=== PATIENT | male | born 1960 | race Caucasian/White ===

== ENCOUNTER 2020-09-29 08:43 | Outpatient (REF) | payer OTHER, SELFPAY ==
--- NOTE | ~2020-09-29 | XR_ITS ---
EXAMINATION: XR KNEE, RIGHT CLINICAL INFORMATION: Right knee pain. COMPARISON: Radiographs right knee 08/14/2016. TECHNIQUE: Four views of the right knee. FINDINGS: There are osteoarthritic changes again seen involving the lateral patellofemoral joint with joint narrowing and lateral patellar spurring. There is mild lateralization patella and some articular cartilage chondrocalcinosis. No visible erosive change. Bony mineralization is normal. There is borderline narrowing medial knee joint compartment and small marginal osteophyte lateral femoral condyle. No mediolateral compartment erosive change or chondrocalcinosis. There is borderline fluid suprapatellar bursa. No significant effusion. Hoffa's fat pad appears normal. XR/XR knee RT 4V IMPRESSION: 1. Osteoarthritis lateral knee joint compartment with mild lateralization patella and some fine articular cartilage chondrocalcinosis. No erosive change. 2. Borderline narrowing medial compartment. 3. Trace suprapatellar fluid.
== END 2020-09-29 08:44 | disposition home or self-care (01) ==
LOC: HO.XRAY 08:43
PROVIDERS: PCP Family Medicine; Visit Provider Family Medicine
DX: M25.561 Pain in right knee (principal)
CPT/HCPCS: 73564

== ENCOUNTER 2021-03-20 17:00 | Outpatient (RCR) | payer OTHER, SELFPAY | END 2021-03-27 16:20 | disposition home or self-care (01) | LOC: HO.PT 17:00 | PROVIDERS: PCP Family Medicine; Visit Provider Family Medicine | DX: M25.561 Pain in right knee (principal) | CPT/HCPCS: 97110; 97140; 97162; 97530 ==

== ENCOUNTER 2022-01-08 08:50 | Outpatient (REF) | payer OTHER, SELFPAY ==
--- NOTE | ~2022-01-08 | MR_ITS ---
EXAMINATION: MR BRAIN WITHOUT CONTRAST CLINICAL INFORMATION: Cognitive dysfunction. Severe hearing loss. COMPARISON: None. TECHNIQUE: Multiplanar, multisequence imaging of the brain was performed without contrast. Slightly limited study with motion artifacts. FINDINGS: No diffusion abnormalities are identified to suggest an acute infarct. The ventricles are normal in size. No mass effect or midline shift is seen. There is gatp-bd-kmsqtfpz generalized parenchymal volume loss. No white matter signal changes evident. No disproportionate volume loss evident. No extra-axial fluid collections are seen. The brainstem and cerebellum are normal. The gradient refocused acquisition is normal. The craniovertebral junction, marrow signal, and midline structures are normal. The major intracranial flow voids at the level of the [place] of Fan are preserved. The dural venous sinus flow voids are maintained. The mastoid air cells are well aerated. There is mild maxillary and ethmoid sinus mucosal thickening. MR/MR head/brain wo con IMPRESSION: No acute process. Vequ-pb-abjcnxkc generalized parenchymal volume loss.
== END 2022-01-08 08:51 | disposition home or self-care (01) ==
LOC: HO.MRI 08:50
PROVIDERS: Visit Provider Nurse Practitioner
DX: R41.89 Other symptoms and signs involving cognitive functions and awareness (principal)
CPT/HCPCS: 70551

== ENCOUNTER 2022-10-30 10:23 | Outpatient (REF) | payer OTHER, SELFPAY ==
[2022-10-30 11:29] LABS: MANUAL DIFF FLAG NO
[2022-10-30 11:38] LABS: Basophils Percent Auto 1.1 % (0-2); Eosinophils Absolute Auto 0.2 X10*3/uL (0.0-0.4); Eosinophils Percent Auto 4.5 % (0-4); Hematocrit 51.9 % (42.0-52.0); Hemoglobin 16.4 g/dl (14.0-18.0); Imm Gran Abs Auto 0.02 X10*3/uL (0.00-0.03); Imm Gran Pct Auto 0.6 % (0.0-0.4); Lymphocytes Absolute Auto 1.1 X10*3/uL (1.2-4.9); Lymphocytes Percent Auto 31.8 % (20-40); Mean Corpuscular HGB Conc 31.6 g/dl (31.0-36.0); Mean Corpuscular Hemoglobin 28.2 pg (27.0-33.0); Mean Corpuscular Volume 89.3 fL (80.0-98.0); Mean Platelet Volume 10.4 fL (9.4-12.4); Monocytes Absolute Auto 0.5 X10*3/uL (0.1-1.2); Monocytes Percent Auto 13.2 % (2-11); Neutrophils Absolute Auto 1.7 x10*3/uL (2.0-8.3); Neutrophils Percent Auto 48.8 % (45-73); Platelet Count 190 X10*3/uL (160-400); Red Blood Count 5.81 X10*6/uL (4.60-5.80); Red Cell Distribution Width 13.6 % (11.0-16.0); White Blood Count 3.6 X10*3/uL (4.8-10.8)
[2022-10-30 12:46] LABS: Alanine Aminotransferase 70 U/L (0-40); Albumin Level 4.1 g/dL (3.5-5.0); Alkaline Phosphatase 65 U/L (39-117); Anion Gap 10 (12-20); Aspartate Amino Transferase 33 U/L (5-37); Bilirubin Total 0.5 mg/dL (0.0-1.0); Blood Urea Nitrogen 13 mg/dL (9-16); Calcium 9.1 mg/dL (8.4-10.2); Carbon Dioxide 30 mmol/L (22-29); Chloride 107 mmol/L (96-108); Estimated Glomerular Filt Rate > 60; Glucose Random 86 mg/dL (60-115); Potassium 4.4 mmol/L (3.3-5.1); Sodium 143 mmol/L (135-145); Total Protein 6.6 g/dL (6.5-8.0)
[2022-10-30 13:10] LABS: TSH reflex Free T4 2.84 uIU/mL (0.32-4.0); Vitamin D 25-OH Total 40.4 ng/mL (>30)
[2022-10-30 13:16] LABS: Folate 6.5 ng/mL (> or = 4.0); Vitamin B12 429 pg/mL (200-900)
[2022-11-05 10:22] LABS: Testosterone, Total 570 ng/dL (250-1100)
== END 2022-10-30 10:24 | disposition home or self-care (01) ==
LOC: HO.HHCL 10:23
PROVIDERS: Visit Provider Registered Nurse
DX: R53.83 Other fatigue (principal); E78.00 Pure hypercholesterolemia, unspecified; E29.1 Testicular hypofunction; E66.01 Morbid (severe) obesity due to excess calories
CPT/HCPCS: 36415; 80053; 82306; 82607; 82746; 84403; 84443; 85025

== ENCOUNTER 2023-03-02 08:16 | Outpatient (REF) | payer OTHER, SELFPAY ==
--- NOTE | ~2023-03-02 | XR_ITS ---
EXAMINATION: XR KNEE, RIGHT CLINICAL INFORMATION: Male with acute on chronic right knee pain and instability. COMPARISON: September 29, 2020 TECHNIQUE: Four views of the right knee. FINDINGS: Advanced degenerative changes in the patellofemoral joint with hypertrophic change, joint space narrowing and subchondral sclerosis. Trace joint effusion. Mild degenerative changes in the medial and lateral compartments. XR/XR knee RT 4V IMPRESSION: Advanced degenerative changes in the patellofemoral joint.
[2023-03-02 09:19] LABS: Alanine Aminotransferase 44 U/L (0-40); Alkaline Phosphatase 65 U/L (39-117); Aspartate Amino Transferase 28 U/L (5-37); Bilirubin Direct 0.2 mg/dL (0.0-0.5); Bilirubin Total 0.6 mg/dL (0.0-1.0); Total Protein 6.5 g/dL (6.5-8.0)
[2023-03-02 09:41] LABS: HBS Num1 0.61 mIU/mL (0-7.99); HBc Num1 0.08 S/CO (0.00-0.79); HBsAGNum1 0.32 S/CO (0.00-0.99); Hepatitis A Antibody IgM 0.15 Index (0-0.79); Hepatitis B Core Antibody Nonreactive (Nonreactive); Hepatitis B Surface Antigen Negative (Negative); ~HepC Num1 0.17 S/CO (0.00-0.79); ~Hepatitis A Antibody IgM Nonreactive (Nonreactive); ~Hepatitis B Surface Antibody NONREACTIVE (Nonreactive); ~Hepatitis C Antibody Nonreactive (Nonreactive)
== END 2023-03-02 08:17 | disposition home or self-care (01) ==
LOC: HO.LAB 08:16
PROVIDERS: PCP Registered Nurse; Visit Provider Registered Nurse
DX: M25.561 Pain in right knee (principal); G89.29 Other chronic pain; R74.8 Abnormal levels of other serum enzymes
CPT/HCPCS: 36415; 73564; 80076; 86704; 86706; 86709; 86803; 87340

== ENCOUNTER 2023-05-06 15:20 | Outpatient (AMB) | payer OTHER, SELFPAY ==
--- NOTE | 2023-05-06 15:41 | A.OFFVIS_ITS ---
Intake Vital Signs 05/06/23 15:56 Height 5 ft 7 in Weight 259 lb BMI 40.6 BP 120/72 Pulse 62 Pulse Source Pulse Oximeter Pulse Oximetry (%) 98 Oxygen Delivery Method Room Air Intake Visit Reasons: [id number]-Oghxwqvmj Intake Note: Patient presents for MARK. getting up x3 a night and doesn't use bathroom, his body just thinks it needs too. During the night he gasp for air and snores. Sleepy through the day Allergies penicillin V Allergy (Unknown, Verified 05/06/23 15:52) rash Penicillins [PENICILLINS] Allergy (Unknown, Verified 05/06/23 15:52) RED RASH HPI HPI Comments History of Present Illness Details 63 y/o male patient presents for new in- person visit to manage sleep apnea. He was diagnose with MARK two years ago, and tried CPAP. He had issue with CPAP and non compliant at that time. Finally he found good mask for him, but he needs to return his CPAP due to noncompliant. Pt continues to experiences snoring, gasping arousals, non refreshing sleep with daytime sleepiness. Sleep questionnaire: Have you ever been diagnosed with a sleep disorder? Yes, severe degree of sleep apnea. Have you ever had a sleep study in the past? Yes. Have you ever been treated for a sleep disorder? Yes, CPAP. Do you take medications for a sleep disorder? ramelteon and trazodone. Do you snore? Yes. Do you wake up gasping at night? Yes. Do you have episodes of apneas? Yes. If yes, are they witnessed? Yes. Do you have episodes of nocturnal chest pain or dyspnea? Yes. Do you have difficulty initiating sleep? Yes. Do you have difficulty maintaining sleep? Yes. Do you wake up tired? Yes. Do you have headaches upon awakening? No. Do you wake up with dry mouth or throat? Yes. Do you have GERD? No. Do you have nocturia? Yes. Do you have nocturnal leg cramps? Yes. Do you have symptoms of restless legs? No. Do you act out your dreams? No. Sleep hygiene questionnaire: What is your usual sleep routine? Usual bedtime is at 11 pm; Usual wake up time is at 9-10 am . Do you take naps? Yes. Is your sleep environment cool, dark, and quiet? Yes. Do you exercise? No. Do you take caffeine or other stimulants? Yes, in the morning and at noon. Do you use electronics in bed? Yes, watching TV. What is your work schedule? No. Review of Systems Const All systems reviewed & are unremarkable except as noted in HPI and below Physical Exam Vital Signs: Last Vital Signs Pulse 62 05/06/23 15:56 BP 120/72 05/06/23 15:56 Pulse Ox 98 05/06/23 15:56 Oxygen Delivery Method Room Air 05/06/23 15:56 BMI result Body Mass Index 40.6 Const General: cooperative and tired appearing Nutritional Appearance: obese Orientation/consciousness: patient oriented x3 Limitations: language barrier Resp Effort & Inspection: normal respiratory effort and able to speak in complete sentences Neuro General: patient oriented x3 and moves all extremities Cranial nerves: Yes CN's II-XII intact bilaterally Cognition (Neuro): normal cognition Gait exam (Neuro): Assisted gait required Motor exam (neuro): 5/5 motor strength present throughout Psych Appearance: grossly normal Mental Status: mental status grossly normal Speech and movement: Normal speech and movement present Affect: normal affect Attitude: cooperative Assessment & Plan Assessment & Plan (1) Sleep apnea: Comment: Hx of severe degree of sleep apnea. Code(s): G47.30 - Sleep apnea, unspecified (2) Daytime sleepiness: Code(s): R40.0 - Somnolence (3) Obesity, Class III, BMI 40-49.9 (morbid obesity): Code(s): E66.01 - Morbid (severe) obesity due to excess calories Plan Pt is advised to undergo in lab sleep study to assess for sleep apnea. Will f/u with pt after study to discuss results and appropriate treatment options. Wt reduction advised. Pt to call with any worsening concerns or questions. Orders: Orders RT PSG in-lab sleep study 05/06/23 E66.01 - Morbid (severe) obesity due to excess calories, G47.30 - Sleep apnea, unspecified, R40.0 - Somnolence Coding Level of Care Code New Pt Level 3 (97379) Diagnoses Sleep apnea G47.30 Daytime sleepiness R40.0 Obesity, Class III, BMI 40-49.9 (morbid obesity) E66.01
[2023-05-06 15:56] VITALS: BP 120/72; PULSE 62; O2SAT 98; BMI 40.6
== END 2023-05-06 16:17 | disposition home or self-care (01) ==
PROVIDERS: PCP Registered Nurse; Visit Provider Nurse Practitioner Family
DX: G47.30 Sleep apnea, unspecified (principal); R40.0 Somnolence; E66.01 Morbid (severe) obesity due to excess calories
CPT/HCPCS: 99203

== ENCOUNTER → 2023-05-06 15:20 | Outpatient (BNVA) | payer OTHER, SELFPAY | PROVIDERS: PCP Registered Nurse; Visit Provider Nurse Practitioner Family | DX: G47.30 Sleep apnea, unspecified (principal); R40.0 Somnolence; E66.01 Morbid (severe) obesity due to excess calories; Z68.41 Body mass index [BMI] 40.0-44.9, adult | CPT/HCPCS: 99202 ==

== ENCOUNTER → 2023-06-02 19:30 | Outpatient (REF) | payer OTHER, SELFPAY | LOC: HO.SL 19:30 | PROVIDERS: PCP Registered Nurse; Visit Provider Nurse Practitioner Family | DX: G47.33 Obstructive sleep apnea (adult) (pediatric) (principal); R40.0 Somnolence | CPT/HCPCS: 95810 ==

== ENCOUNTER → 2023-06-02 23:56 | Outpatient (BNV) | payer OTHER, SELFPAY | PROVIDERS: PCP Registered Nurse; Visit Provider Psychiatry & Neurology Neurology | DX: G47.33 Obstructive sleep apnea (adult) (pediatric) (principal) | CPT/HCPCS: 95811 ==

== ENCOUNTER 2023-09-02 09:59 | Outpatient (REF) | payer OTHER, SELFPAY ==
[2023-09-02 12:11] LABS: Alanine Aminotransferase 16 U/L (0-40); Albumin Level 4.1 g/dL (3.5-5.0); Alkaline Phosphatase 66 U/L (39-117); Anion Gap 9 (12-20); Aspartate Amino Transferase 14 U/L (5-37); Bilirubin Total 0.6 mg/dL (0.0-1.0); Blood Urea Nitrogen 8 mg/dL (9-16); Calcium 9.3 mg/dL (8.4-10.2); Carbon Dioxide 31 mmol/L (22-29); Chloride 107 mmol/L (96-108); Cholesterol 222 mg/dL (<200); Estimated Glomerular Filt Rate > 60; Glucose Random 91 mg/dL (60-115); HDL Cholesterol 44 mg/dL (>40); LDL Cholesterol Calculated 154 mg/dL (<100); Potassium 4.5 mmol/L (3.3-5.1); Sodium 142 mmol/L (135-145); Total Protein 6.7 g/dL (6.5-8.0); Triglycerides 123 mg/dL (<150)
== END 2023-09-02 10:00 | disposition home or self-care (01) ==
LOC: HO.HHCL 09:59
PROVIDERS: Visit Provider Registered Nurse
DX: E78.00 Pure hypercholesterolemia, unspecified (principal)
CPT/HCPCS: 36415; 80053; 80061

== ENCOUNTER 2023-09-04 10:29 | Outpatient (AMB) | payer OTHER, SELFPAY ==
[2023-09-04 10:42] VITALS: BP 118/80; BMI 41.3
--- NOTE | 2023-09-04 10:42 | A.OFFVIS_ITS ---
Vital Signs 09/04/23 10:42 Height 5 ft 7 in Weight 264 lb BMI 41.3 BP 118/80 Blood Pressure Location Rt brachial Position Sitting Intake Visit Reasons: 4 month F/U - LvM Intake Note: Patient presents for 4 month follow up. patient has issues with the air coming from mask. Senior Marketing Data Analyst Required: Yes Senior Marketing Data Analyst Name: patient refused signed refusal Allergies penicillin V Allergy (Unknown, Verified 09/04/23 10:47) rash Penicillins [PENICILLINS] Allergy (Unknown, Verified 09/04/23 10:47) RED RASH Medication List - Last Reconciled 09/04/23 by VAL Caban albuterol sulfate 90 mcg/actuation (Ventolin HFA) inhalation atorvastatin 80 mg PO DAILY bupropion HCl XL 150 mg PO DAILY cholecalciferol (vitamin D3) (Vitamin D3) 50 mcg PO DAILY naproxen 375 mg PO BID ramelteon 8 mg PO DAILY trazodone 100 mg PO BEDTIME HPI Comments Details: 63-yr-old male presents for follow-up visit of sleep apnea. Pt is accompanied by his dtr, who pt requested assist w/ estonian interpretation. Pt denies any significant interval medical history changes. Since the last visit- pt underwent in-lab Split titration study which showed severe MARK w/ AHI 53/hr and O2 karthikeyan 88%, split night PAP titration componenent of study showed best treatment response from CPAP 11 cmH2O w/ redidual AHI 0/hr and O2 karthikeyan 91%. Pt has since received a new CPAP machine. He sttes he is using the machine nightly > 4 hrs. He feels the pressure is just a bit too high, so he cannot fully sleep well when using it. He endorses some episodes of SOB on exertion. May use his albuterol inhaler at times prn SOB which helps. Denies wheezing, chest pain, palpitations, swelling. PFSH Family History (Updated 09/04/23 @ 10:49 by MARINE Cam) Sister Sleep apnea Diabetes Social History (Updated 09/04/23 @ 10:49 by MARINE Cam) Alcohol intake: never Patient Tobacco Use Status: Former Tobacco user Years Smoked: quit 2003 Review of Systems Const All systems reviewed & are unremarkable except as noted in HPI and below Physical Exam Vital Signs: Last Vital Signs BP 118/80 09/04/23 10:42 BMI result Body Mass Index 41.3 Const General: no acute distress Orientation/consciousness: patient oriented x3 HEENT Other: Mallampati stage Resp Effort & Inspection: normal respiratory effort and able to speak in complete sentences Auscultation: clear to auscultation bilaterally Cardio Rate: regular rate Rhythm: regular rhythm Neuro General: patient oriented x3 Psych Mental Status: mental status grossly normal Speech and movement: Clear speech present Attitude: cooperative Results Reviewed Results Reviewed: PAP compliance report- see HPI Assessment & Plan Assessment & Plan (1) Severe obstructive sleep apnea: Code(s): G47.33 - Obstructive sleep apnea (adult) (pediatric) Category: Medical (2) Daytime sleepiness: Code(s): R40.0 - Somnolence Category: Medical (3) Anxiety: Code(s): F41.9 - Anxiety disorder, unspecified Category: Medical (4) Mild intermittent asthma: Code(s): J45.20 - Mild intermittent asthma, uncomplicated Category: Medical Plan Will request updated PAP compliance report and to be connected to pt's [employer] account. Once connected, will change CPAPsettings from 11 to 8 cmH2O (w/ EPR set to 3) nightly > 4 hours- to improve pt's tolerance to use. Advised to f/u w/ PCP if pt is using his Albuterol more tahn 2-3 x's weekly Clean CPAP machine and supplies routinely. Change CPAP supplies routinely. Pt to contact us or respiratory company with any questions or concerns. Follow-up in 6 months or sooner prn. Coding Level of Care Code Est Pt Level 3 (38580) Diagnoses Severe obstructive sleep apnea G47.33 Daytime sleepiness R40.0 Anxiety F41.9 Mild intermittent asthma J45.20
== END 2023-09-04 11:39 | disposition home or self-care (01) ==
PROVIDERS: PCP Registered Nurse; Visit Provider Nurse Practitioner Family
DX: G47.33 Obstructive sleep apnea (adult) (pediatric) (principal); R40.0 Somnolence; F41.9 Anxiety disorder, unspecified; J45.20 Mild intermittent asthma, uncomplicated
CPT/HCPCS: 99213

== ENCOUNTER → 2023-09-04 10:29 | Outpatient (BNVA) | payer OTHER, SELFPAY | PROVIDERS: PCP Registered Nurse; Visit Provider Nurse Practitioner Family | DX: J45.20 Mild intermittent asthma, uncomplicated (principal); G47.33 Obstructive sleep apnea (adult) (pediatric); R40.0 Somnolence; F41.9 Anxiety disorder, unspecified | CPT/HCPCS: 99212 ==

== ENCOUNTER 2024-04-14 08:54 | Outpatient (AMB) | payer OTHER, SELFPAY ==
--- NOTE | 2024-04-14 09:01 | A.OFFVIS_ITS ---
Intake Visit Reasons: New Pt - right knee pain Intake Note: Jose Alberto is a 64 year old male who presents today with his daughter as a new patient for a evaluation of his right knee pain. No hx of injury. Patient reports ongoing pain for about 5 years. Patient states that his pain is on the center of his knee cap. He mentions that his pain is worse when standing for less than 30 minutes and going up the stairs. Patient has tried topical cream with mild relief. Pipe Roller Required: Yes Pipe Roller Services: Pipe Roller Offered & Declined Pipe Roller Name: Daughter Accompanied by: Daughter Allergies penicillin V Allergy (Unknown, Verified 04/14/24 09:06) rash Penicillins [PENICILLINS] Allergy (Unknown, Verified 04/14/24 09:06) RED RASH HPI HPI New Pt - right knee pain: Details: Mr. Ramiro Fitzpatrick is a 64-year-old male who presents the office today for evaluation of right knee pain. He denies any injury or trauma to the right knee but reports pain has been present for the past 5 years. He has not tried any cortisone injections. He understands that he has arthritis in the right knee. He uses a cane to assist with ambulation. [facility] Family History (Updated 09/04/23 @ 10:49 by MARINE Cam) Sister Sleep apnea Diabetes Social History (Updated 04/14/24 @ 09:07 by Aria Jasso) Alcohol intake: never Patient Tobacco Use Status: Former Tobacco user Years Smoked: quit 2003 Current occupational status: retired Review of Systems Const All systems reviewed & are unremarkable except as noted in HPI and below Physical Exam Const General: cooperative, healthy appearing and no acute distress Resp Effort & Inspection: normal respiratory effort and able to speak in complete sentences Cardio Rate: regular rate Peripheral pulses: Peripheral pulses 2+ throughout Skin Lesions: no lesions Rashes: no rashes Extrem Other: Right knee normal to inspection. No ecchymosis erythema or joint effusion. Crepitus felt with range of motion. Full range of motion. NVI. Office Procedures AMB Joint Injection/Aspiration Joint Injection/Aspiration Primary Site: right knee Injected: 80 mg of, DepoMedrol and with 8 mL of (2% plain lidocaine) Approach Used: anterolateral Procedure: The patient tolerated the procedure well, but had some pain with the injection and there was some relief with the local anesthesia Coding - Large joint Procedure code (CPT) selection complete Assessment & Plan Assessment & Plan (1) Osteoarthritis of right knee: Code(s): M17.11 - Unilateral primary osteoarthritis, right knee Category: Medical Plan Mr. Ramiro Fitzpatrick is a 64-year-old male who presents the office today for evaluation of right knee pain. He denies any injury or trauma to the right knee but reports pain has been present for the past 5 years. He has not tried any cortisone injections. He understands that he has arthritis in the right knee. He uses a cane to assist with ambulation. The patient was offered a cortisone injection in the right knee with 80 mg of DepoMedrol. The patient was explained the risks, benefits, and alternatives to receiving this injection. After receiving consent for the injection, the patient had the procedure done while in the office today. The patient tolerated the procedure well with no complications. X-rays obtained in the office today as well as digital views from 12/01/2023 reviewed in the office today by me, Milagros Denny PA-C, and reveal osteoarthritis of the right knee. Follow-up will be p.r.n., or sooner if needed Orders: Orders XR knee standing BI Today M25.569 - Pain in unspecified knee Coding Level of Care Code New Pt Level 3 (39043) Diagnoses Osteoarthritis of right knee M17.11 CPT Codes Coding - Large joint: 18696 - Large joint ([id number])
== END 2024-04-14 09:36 | disposition home or self-care (01) ==
PROVIDERS: PCP Registered Nurse; Visit Provider Physician Assistant
DX: M17.11 Unilateral primary osteoarthritis, right knee (principal)
CPT/HCPCS: 20610; 99203

== ENCOUNTER 2024-04-14 14:21 | Outpatient (REF) | payer OTHER, SELFPAY ==
--- NOTE | ~2024-04-14 | XR_ITS ---
CLINICAL HISTORY: M25.569 - Pain in unspecified knee Exam: Single AP view of the bilateral knees. Comparison: None. Findings: Standing AP view of the bilateral knees was performed. Left knee: Patella is slightly laterally positioned. Bony alignment is otherwise anatomic. Medial and lateral compartments are well maintained. No obvious fracture. Right knee: Lateral positioning of the patella is more pronounced than of the contralateral knee. Bony alignment is otherwise anatomic. Mild narrowing of the medial compartment with osteophyte formation of the lateral compartment. Impression: Findings suggest bilateral patellofemoral stress syndrome, [id number]-ltyuwce-tumd-left. Clinical correlation advised. This document has been electronically signed by: Wiliam Truong MD on 04/15/2024 06:13:04
== END 2024-04-14 14:22 | disposition home or self-care (01) ==
LOC: HO.HOSX 14:21
PROVIDERS: Visit Provider Physician Assistant
DX: M17.11 Unilateral primary osteoarthritis, right knee (principal)
CPT/HCPCS: 20610; 73565; 99202; J1010; J2003

== ENCOUNTER 2024-06-05 10:32 | Outpatient (REF) | payer OTHER, SELFPAY ==
[2024-06-05 11:46] LABS: Estimated Average Glucose 105 mg/dL; Hemoglobin A1C 130.9777 umol/L; Hemoglobin A1c % 5.3 % (<6.0); Total Hemoglobin (HGBA1C) 3840.3406 umol/L
[2024-06-05 12:13] LABS: Prostate Specific Antigen 0.96 ng/mL (<0.05-4.0)
[2024-06-05 12:26] LABS: Alanine Aminotransferase 17 U/L (0-40); Albumin Level 4.1 g/dL (3.5-5.0); Anion Gap 10 (12-20); Aspartate Amino Transferase 17 U/L (5-37); Bilirubin Total 0.7 mg/dL (0.0-1.0); Blood Urea Nitrogen 10 mg/dL (9-16); Calcium 8.9 mg/dL (8.4-10.2); Carbon Dioxide 29 mmol/L (22-29); Chloride 108 mmol/L (96-108); Cholesterol 223 mg/dL (<200); Estimated Glomerular Filt Rate > 60; Glucose Random 90 mg/dL (60-115); HDL Cholesterol 43 mg/dL (>40); LDL Cholesterol Calculated 154 mg/dL (<100); Potassium 4.4 mmol/L (3.3-5.1); Sodium 143 mmol/L (135-145); Total Protein 7.2 g/dL (6.5-8.0); Triglycerides 134 mg/dL (<150)
[2024-06-05 12:45] LABS: Alkaline Phosphatase 85 U/L (39-117)
== END 2024-06-05 10:33 | disposition home or self-care (01) ==
LOC: HO.HHCL 10:32
PROVIDERS: Visit Provider Registered Nurse
DX: Z12.5 Encounter for screening for malignant neoplasm of prostate (principal); R73.9 Hyperglycemia, unspecified; G47.33 Obstructive sleep apnea (adult) (pediatric); E78.00 Pure hypercholesterolemia, unspecified
CPT/HCPCS: 36415; 80053; 80061; 83036; 84153

== ENCOUNTER 2024-10-16 12:56 | Outpatient (REF) | payer OTHER, SELFPAY ==
--- NOTE | ~2024-10-16 | XR_ITS ---
EXAMINATION: XR KNEE, LEFT CLINICAL INFORMATION: M25.569 - Pain in unspecified knee COMPARISON: April 14, 2024. TECHNIQUE: AP view in standing position both knees. Lateral view of the left knee. FINDINGS: Joint space narrowing involving medial lateral compartment with sclerosis along the articular surface of the tibial plateau. No acute cortical disruption or malalignment, left knee. No suprapatellar bursa joint effusion. Vascular calcifications. No lytic or blastic lesions. XR/XR knee LT 2V IMPRESSION: Mild tricompartmental osteoarthrosis, left knee. Electronically signed by: Rudy Olson MD 10/16/2024 01:21 PM EDT
--- NOTE | ~2024-10-16 | XR_ITS ---
EXAMINATION: XR KNEE, RIGHT CLINICAL INFORMATION: M25.569 - Pain in unspecified knee COMPARISON: April 14, 2024. TECHNIQUE: Single lateral view of the right knee. FINDINGS: Limited examination demonstrated the joint space narrowing involving medial lateral compartment and patellofemoral joint with sclerosis along the articular surface. No gross malalignment. No suprapatellar bursa joint effusion. Vascular calcifications. No lytic or blastic lesions. XR/XR knee RT 2V IMPRESSION: Tricompartmental osteoporosis. Limited exam. Electronically signed by: Rudy Olson MD 10/16/2024 01:20 PM EDT
--- NOTE | ~2024-10-16 | XR_ITS ---
EXAMINATION: XR KNEE, RIGHT CLINICAL INFORMATION: M25.569 - Pain in unspecified knee COMPARISON: October 16, 2024. TECHNIQUE: Single sunrise view of the right knee. FINDINGS: Sclerosis along the articular surface and subchondral cyst formation with asymmetric joint space narrowing involving mostly the lateral segment of the patellofemoral joint XR/XR knee RT 1V IMPRESSION: Moderate osteoarthrosis. Limited exam. Electronically signed by: Rudy Olson MD 10/16/2024 01:51 PM EDT
--- NOTE | ~2024-10-16 | XR_ITS ---
EXAMINATION: XR KNEE, LEFT CLINICAL INFORMATION: M25.569 - Pain in unspecified knee COMPARISON: October 16, 2024. TECHNIQUE: Single sunrise view of the left knee. FINDINGS: No acute cortical disruption. Asymmetric joint space narrowing. No gross lytic or blastic lesions. XR/XR knee LT 1V IMPRESSION: Limited exam demonstrates mild osteoarthrosis. Electronically signed by: Rudy Olson MD 10/16/2024 01:50 PM EDT
--- OUTSIDE RECORDS SUMMARY | 2024-10-16 13:03 | XMS_ITS | Encounter Summary ---
Author Organization [employer] Address [address] [place] [address] Care Team Providers Care Hemodialysis Rn Name Role Phone [place], [facility] Primary Care Provider [phone] Encounter Details Date Type Department Care Team ([facility] st Contact Info) Description 08/06/2022 Orders Only [facility] MEDICINE [address] [place], [place] [phone] EllieSteph [facility] [address] [place] [address] Obstructive sleep apnea syndrome (Primary Dx) Social History Tobacco Use Types Packs/Day Years Used Date Smoking Tobacco: Former Cigarettes Smokeless Tobacco: Never Alcohol Use Standard Drinks/Week Comments Never 0 (1 standard drink = 0.6 oz pur e alcohol) Sex and Gender Information Value Date Recorded Sex Assigned at Male 01/22/2022 10:29 AM EDT Legal Sex Male 10:29 AM EDT Gender Identity Male 01/22/2022 10:29 AM EDT Sexual Orientation Bisexual 01/22/2022 10 :29 AM EDT documented as of this encounter Plan of Treatment Not on file documented as of this encounter Visit Diagnoses Diagnosis Obstructive sleep apnea syndrome- Primary Obstructive sleep apnea (adult) (pediatric) documented in this encounter Additional Health Concerns Assessment Noted Time PHQ-9 Depression Total Score: 8 03/27/19 23 10:20 AM EST documented as of this encounter Care Teams Hemodialysis Rn Relationship Specialty Start Date End Date Steph Argueta FNP [address] [place] [id number] PCP - General Family Medicine 11/15/21 documented as of this encounter
== END 2024-10-16 12:57 | disposition home or self-care (01) ==
LOC: HO.HOSX 12:56
PROVIDERS: Visit Provider Physician Assistant
DX: M17.0 Bilateral primary osteoarthritis of knee (principal); M25.561 Pain in right knee; M25.562 Pain in left knee
CPT/HCPCS: 20610; 73560; 99212; J1010; J2003

== ENCOUNTER 2024-10-16 12:56 | Outpatient (AMB) | payer OTHER, SELFPAY ==
--- NOTE | 2024-10-16 13:24 | MHC.OFFVIS ---
Vital Signs 10/16/24 13:26 Height 5 ft 7 in Weight 265 lb BMI 41.5 Intake Visit Reasons: New Prob - B/L knee pain Intake Note: Jose Alberto is a 64 year old male who presents today for a evaluation of his bilateral knee pain, last injection was on 04/14/24 in his right knee. Patient reports ongoing pain for about 3 years. He states knees are equally painful, however overtime pain, pain goes from one knee to the other. Denies and previous injury. Has attended physical therapy, with no improvement. Has used topical creams, braces, and medications, with no relief. Impression: Findings suggest bilateral patellofemoral stress syndrome, smxgw-rpwtluf-hzxm-left. Clinical correlation advised. Allergies penicillin V Allergy (Unknown, Verified 10/16/24 13:31) rash Penicillins (PENICILLINS) Allergy (Unknown, Verified 10/16/24 13:31) RED RASH HPI HPI New Prob - B/L knee pain: Details: Mr. Ramiro Fitzpatrick is a 64-year-old male who presents to the office today for bilateral knee pain due to osteoarthritis. He last received a cortisone injection in the right knee in March of this year. He would like cortisone injections in bilateral knees. [facility] Family History (Updated 09/04/23 @ 10:49 by MARINE Cam) Sister Sleep apnea Diabetes Social History (Updated 04/14/24 @ 09:07 by Aria Jasso) Alcohol intake: never Patient Tobacco Use Status: Former Tobacco user Years Smoked: quit 2003 Current occupational status: retired Review of Systems Const All systems reviewed & are unremarkable except as noted in HPI and below Physical Exam Vital Signs: BMI result Body Mass Index 41.5 Const General: cooperative, healthy appearing and no acute distress Resp Effort & Inspection: normal respiratory effort and able to speak in complete sentences Extrem Other: Bilateral knees normal to inspection. No ecchymosis erythema or joint effusion. Crepitus felt with range of motion. Full range of motion. NVI. Office Procedures AMB Joint Injection/Aspiration Joint Injection/Aspiration Primary Site: right knee Secondary Site: left knee Prep: site was prepped using aseptic technique, ethochloride spray was applied and injection warnings given Injected: 80 mg of, DepoMedrol and with 8 mL of (2% plain lidocaine) Approach Used: anterolateral Procedure: The patient tolerated the procedure well, but had some pain with the injection and there was some relief with the local anesthesia Coding 35617 - Bilateral Large Joint Procedure code (CPT) selection complete Assessment & Plan Assessment & Plan (1) Osteoarthritis of knees, bilateral: Code(s): M17.0 - Bilateral primary osteoarthritis of knee Category: Medical Plan The patient was offered cortisone injections in bilateral knees with 80 mg of DepoMedrol. The patient was explained the risks, benefits, and alternatives to receiving this injection. After receiving consent for the injection, the patient had the procedure done while in the office today. The patient tolerated the procedure well with no complications. Follow-up will be PRN, or sooner if needed X-rays of bilateral knees which were obtained while in the office today and were reviewed by me, Milagros Denny PA-C, revealed osteoarthritis. Orders: Orders XR knee RT 2V Today M25.569 - Pain in unspecified knee XR knee LT 2V Today M25.569 - Pain in unspecified knee XR knee RT 1V Today M25.569 - Pain in unspecified knee XR knee LT 1V Today M25.569 - Pain in unspecified knee Coding Level of Care Code Est Pt Level 3 (64771) Diagnoses Osteoarthritis of knees, bilateral M17.0 CPT Codes Coding - 02856 - Bilateral Large Joint: 63773 - Bilateral Large Joint ([id number])
[2024-10-16 13:26] VITALS: BMI 41.5
== END 2024-10-16 14:08 | disposition home or self-care (01) ==
LOC: HO.HOS 12:57
PROVIDERS: Visit Provider Physician Assistant
DX: M17.0 Bilateral primary osteoarthritis of knee (principal)
CPT/HCPCS: 20610; 99213

== ENCOUNTER → 2024-10-16 13:02 | Outpatient (BNV) | payer OTHER, SELFPAY | PROVIDERS: Visit Provider Radiology Diagnostic Radiology | DX: M17.0 Bilateral primary osteoarthritis of knee (principal) | CPT/HCPCS: 73560 ==

== ENCOUNTER 2024-10-20 10:54 | Outpatient (REF) | payer OTHER, SELFPAY ==
--- OUTSIDE RECORDS SUMMARY | 2024-10-21 11:57 | XMS_ITS | Encounter Summary ---
Author Organization [employer] Address [address] [place] [address] Care Team Providers Care Caser In Name Role Phone [place], [facility] Primary Care Provider [phone] Encounter Details Date Type Department Care Team ([facility] st Contact Info) Description 08/06/2022 Orders Only [facility] MEDICINE [address] [place], [place] [phone] EllieSteph [facility] [address] [place] [address] Obstructive sleep apnea syndrome (Primary Dx) Social [...] documented as of this encounter Care Teams Caser In Relationship Specialty Start Date End Date Steph Argueta FNP [address] [place] [id number] PCP - General Family Medicine 11/15/21 documented as of this encounter
== END 2024-10-20 10:55 | disposition home or self-care (01) ==
LOC: HO.HOSX 10:54
PROVIDERS: Visit Provider Physician Assistant
DX: Z13.89 Encounter for screening for other disorder (principal)

== ENCOUNTER 2025-01-26 08:13 | Outpatient (AMB) | payer OTHER, SELFPAY ==
--- NOTE | 2025-01-26 08:20 | MHC.OFFVIS ---
Intake Visit Reasons: Inj-B/L knee injection-last 10/16/24 Intake Note: Jose Alberto is a 64 year old male who presents today for a repeat injection for his bilateral knees, last injection was on 10/16/24. Patient reports his last injections gave him relief and would like to repeat. Allergies penicillin V Allergy (Unknown, Verified 01/26/25 08:32) rash Penicillins (PENICILLINS) Allergy (Unknown, Verified 01/26/25 08:32) RED RASH HPI HPI Inj-B/L knee injection-last 10/16/24: Details: MR. Ramiro Fitzpatrick is a 64-year-old male who presents to the office today for chronic bilateral knee pain. He received a cortisone injection on 10/16/2024 which gave him good relief. He is looking to repeat injection while in the office today. [facility] Family History (Updated 09/04/23 @ 10:49 by MARINE Cam) Sister Sleep apnea Diabetes Social History Alcohol intake: never Patient Tobacco Use Status: Former Tobacco user Years Smoked: quit 2003 Current occupational status: retired Review of Systems Const All systems reviewed & are unremarkable except as noted in HPI and below Physical Exam Const General: cooperative, healthy appearing and no acute distress Resp Effort & Inspection: normal respiratory effort and able to speak in complete sentences Extrem Other: Bilateral knees normal to inspection. No ecchymosis erythema or joint effusion. Crepitus felt with range of motion. Full range of motion. NVI. Office Procedures AMB Joint Injection/Aspiration Joint Injection/Aspiration Primary Site: right knee Secondary Site: left knee Prep: site was prepped using aseptic technique, ethochloride spray was applied and injection warnings given Injected: 40 mg of, with 3 mL of, 1% plain lidocaine, 0.25% bupivacaine, in the joint and decadron Approach Used: anterolateral Procedure: The patient tolerated the procedure well, but had some pain with the injection and there was some relief with the local anesthesia Coding 63818 - Bilateral Large Joint Procedure code (CPT) selection complete Assessment & Plan Assessment & Plan (1) Osteoarthritis of knees, bilateral: Code(s): M17.0 - Bilateral primary osteoarthritis of knee Category: Medical Plan The patient was offered a cortisone injection in bilateral knees. The patient was explained the risks, benefits, and alternatives to receiving this injection. After receiving consent for the injection, the patient had the procedure done while in the office today. The patient tolerated the procedure well with no complications. Follow-up will be p.r.n., or sooner if needed Coding Level of Care Code Est Pt Level 3 (14227) Diagnoses Osteoarthritis of knees, bilateral M17.0 CPT Codes Coding - 75669 - Bilateral Large Joint: 10416 - Bilateral Large Joint ([id number])
--- OUTSIDE RECORDS SUMMARY | 2025-01-26 08:32 | XMS_ITS | Encounter Summary ---
Author Organization [employer] Address [address] [place] [address] Care Team Providers Care Replenishment Merchandising Associate Name Role Phone [facility] Primary Care Provider [phone] Encounter Details Date Type Department Care Team ([facility] st Contact Info) Description 12/18/2022 Orders Only [facility] MED[facility] [address] [place] [address] [facility] [address] [place] [address] Encounter for screening for malignant neoplasm of colon Social History Tobacco Use Types Packs/Day Years Used Date Smoking Tobacco: Former Cigarettes Smokeless Tobacco: Never Alcohol Use Standard Drinks/Week Comments Never 0 (1 standard drink = 0.6 oz pur e alcohol) Depression Answer Date Recorded Patient Health Questionnaire-9 Score 0 10/30/2022 Depression Answer Date Recorded Patient Health Questionnaire-2 Score 0 10/30/2022 Sex and Gender Information Value Date Recorded Sex Assigned at Male 01/22/2022 10:29 AM EDT Legal Sex Male 10:29 AM EDT Gender Identity Male 01/22/2022 10:29 AM EDT Sexual Orientation Bisexual 01/22/2022 10 :29 AM EDT documented as of this encounter Plan of Treatment Not on file documented as of this encounter Procedures Procedure Name Priority Date/Time Associated Diagnosis Comments LAB COLOGUARD COLON CANCER SCREEN Routine 01/01/2023 7:32 PM EDT Encounter for screening for malignant neoplasm of colon documented in this encounter Results * Cologuard?? colon cancer screening (01/01/2023 7:32 PM EDT) Cologuard Result Negative Negative 01/10/20 1:35 AM EDT [facility] (CLIA #:[id number]) Comment: NEGATIVE TEST RESULT. A negative Cologuard result indicates a low likelihood that a colorectal cancer (CRC) or advanced adenoma (adenomatous polyps with more advanced pre-malignant features) is present. The chance that a person with a negative Cologuard test has a colorectal cancer is less than 1 in 1500 (negative predictive value >99.9%) or has an advanced adenoma is less than 5.3% (negative predictive value 94.7%). These data are based on a prospective cross-sectional study of 10,000 individuals at average risk for colorectal cancer who were screened with both Cologuard and colonoscopy. (Elroy Freedman al, N Engl J Med 2014;370(14):3000-9335) The normal value (reference range) for this assay is negative. COLOGUARD RE-SCREENING RECOMMENDATION: Periodic colorectal cancer screening is an important part of preventive healthcare for asymptomatic individuals at average risk for colorectal cancer. Following a negative Cologuard result, the [place] [employer] Society and U.S. Multi-Society Task Force screening guidelines recommend a Cologuard re-screening interval of 3 years. References: [place] [employer] Guideline for Colorectal Cancer Screening: https://www.cancer.org/cancer/jmwom-unrdhp-ywuybg/plwqfutwe-rtnvgxpzp-jglpdbp/ac s-rec ommendations.html.; Anand DK, Breann MEEKS, Marianne ContrerasK, Colorectal Cancer Screening: Recommendations for Physicians and Patients from the U.S. Multi-Society Task Force on Colorectal Cancer Screening , Am J Gastroenterology 2017; 112:2241-2558. TEST DESCRIPTION: Composite algorithmic analysis of stool DNA-biomarkers with hemoglobin immunoassay. Quantitative values of individual biomarkers are not reportable and are not associated with individual biomarker result reference ranges. Cologuard is intended for colorectal cancer screening of adults of either sex, 45 years or older, who are at average-risk for colorectal cancer (CRC). Cologuard has been approved for use by the U.S. FDA. The performance of Cologuard was established in a cross sectional study of average-risk adults aged 50-84. Cologuard performance in patients ages 45 to 49 years was estimated by sub-group analysis of near-age groups. Colonoscopies performed for a positive result may find as the most clinically significant lesion: colorectal cancer [4.0%], advanced adenoma (including sessile serrated polyps greater than or equal to 1cm diameter) [20%] or non- advanced adenoma [31%]; or no colorectal neoplasia [45%]. These estimates are derived from a prospective cross-sectional screening study of 10,000 individuals at average risk for colorectal cancer who were screened with both Cologuard and colonoscopy. (Elroy Dominguez et al, N Engl J Med 2014;370(14):3007-1378.) Cologuard may produce a false negative or false positive result (no colorectal cancer or precancerous polyp present at colonoscopy follow up). A negative Cologuard test result does not guarantee the absence of CRC or advanced adenoma (pre-cancer). The current Cologuard screening interval is every 3 years. ([place] [employer] and U.S. Multi-Society Task Force). Cologuard performance data in a 10,000 patient pivotal study using colonoscopy as the reference method can be accessed at the following location: www.[employer]/results. Additional description of the Cologuard test process, warnings and precautions can be found at www.[employer].com. Stool specimen (specimen) 01/01/2023 7:32 PM EDT 01/03/2023 8:38 PM EDT [facility] LAB MOLECULAR DIAGNOSTICS ORD ERABLES Final Result [facility] (CLIA #:[id number]) [place] [address], documented in this encounter Visit Diagnoses Diagnosis Encounter for screening for malignant neoplasm of colon documented in this encounter Additional Health Concerns Assessment Noted Time PHQ-9 Depression Total Score: 0 10/31/19 23 9:32 AM EDT documented as of this encounter Care Teams Replenishment Merchandising Associate Relationship Specialty Start Date End Date Steph Argueta FNP [address] [place] [phone] PCP - General Family Medicine 11/15/21 documented as of this encounter
--- OUTSIDE RECORDS SUMMARY | 2025-01-26 08:32 | XMS_ITS | Clinical Summary ---
Author Organization [employer] Address [address] [facility] 7t [place] [address] Care Team Providers Care Manufacturing Planner Name Role Phone Steph Argueta [facility] Primary Care Provider [phone] Allergies Active Allergy Reactions Criticality Noted Date Comments Penicillins Hives 01/13/2016 Medications buPROPion XL (Wellbutrin XL) 150 MG 24 hr tablet Take 1 tablet by mouth in the morning. 02/06/20 22 Active Diclofenac Sodium 1 % gel Apply 2 g topically in the morning, at noon, in the evening, and at bedtime. 09/02/19 22 Active ketotifen (Zaditor) 0.025 % ophthalmic solution Administer 1 drop into affected eye(s) in the morning and at bedtime. 09/16/19 22 Active ramelteon (Rozerem) 8 MG tablet Take 1 tablet by mouth at bed time. 10/28/19 22 Active Ventolin HFA 108 (90 Base) MCG/ACT inhalerIndicatio ns:Mild intermittent asthma without complication Inhale 2 puffs every 6 (six) hours if needed for wheezing. INHALE 2 PUFFS BY MOUTH EVERY 4 TO 6 HOURS NEEDED 18 g 3 10/31/19 23 Active ketoconazole (NIZOral) 2 % shampooIndicatio ns:Seborrhea APPLY TOPICALLY TWICE WEEKLY 120 mL 2 12/23/19 24 Active Tirzepatide-Weig ht Management (Zepbound) 2.5 MG/0.5ML solution auto-injectorInd ications:Obstruc tive sleep apnea syndrome,Metabol ic syndrome,Class 3 severe obesity due to excess calories with serious comorbidity and body mass index (BMI) of 40.0 to 44.9 in adult (HCC) Inject 0.5 mL (2.5 mg) under the skin 1 (one) time per week. 2 mL 3 06/09/19 25 Active ezetimibe (Zetia) 10 MG tablet Take 1 tablet (10 mg) by mouth Once per day. 90 tablet 3 06/11/19 25 026 Active traZODone (Desyrel) 100 MG tabletIndication s:Recurrent major depressive disorder, in remission (CMS/HCC) Take 1.5 tablets (150 mg) by mouth at bedtime. 45 tablet 11 08/04/19 25 026 Active atorvastatin (Lipitor) 80 MG tablet TAKE 1 TABLET BY MOUTH EVERY MORNING 90 tablet 08/27/19 25 Active D3 Super Strength 50 MCG (1999 UT) capsuleIndicatio ns:Vitamin D deficiency TAKE 1 CAPSULE BY MOUTH EVERY MORNING 90 capsule 1 11/19/19 25 Active naproxen (Naprosyn) 375 MG tabletIndication s:Pain TAKE 1 TABLET BY MOUTH TWICE DAILY IN THE MORNING AND IN THE EVENING WITH MEALS 60 tablet 3 12/29/19 25 Active naproxen (Naprosyn) 375 MG tabletIndication s:Pain TAKE 1 TABLET BY MOUTH TWICE DAILY IN THE MORNING AND IN THE EVENING WITH MEALS 60 tablet 3 07/07/19 25 025 Discontinued Active Problems Problem Noted Date Diagnosed Date Metabolic syndrome 03/05/2024 Obesity, morbid 09/01/2023 Recurrent major depressive disorder, in remissio n 04/09/2022 Overview (04/09/2022): Buproprion 150mg XR, trazodone 100mg Establish with psychiatry and therapy through [facility] Mild cognitive impairment of uncertain or unknow n etiology 04/09/2022 Overview (04/09/2022): Unremarkable brain MRI 12/2021 -Mini-cog score 2, TSH, CBC, B12 all WNL at this time Assessment & Plan (04/09/2022 11:01 AM EST): Repeat Mini-Cog performed in office today-score 2, unchanged from previous screening Will repeat lab work for reversible causes 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, pt verbalizes understanding Encouraged regular exercise to prevent sx progression Will continue to monitor Mild intermittent asthma without complication Overview (04/09/2022): PRN albuterol when sick only Healthcare maintenance 04/09/2022 Overview (02/03/2023): C-Scope: 01/2023 Negative cologuard PSA: 08/2021, 0.85 HCV Screen: 06/2021, neg HIV Screen: 06/2021, neg STI Screening: Declines Vision Exam: 11/2022 [facility]: On wait list at [facility] Assessment & Plan (04/09/2022 11:02 AM EST): Pt accepts COVID booster today, otherwise up to date on preventative care Pain in right knee 06/22/2021 Male hypogonadism 06/27/2018 Erectile dysfunction due to diseases classified elsewhere 06/27/2018 Overview (04/09/2022): 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 Insurance requesting updated sleep study due to hx of non-compliance. Will resubmit order and include letter of medical necessity explaining that patient was non compliant due to lack of social support which has now changed. Will order repeat infacility sleep study, however hopefully will be able to appeal insurance so avoid further delays in care Assessment & Plan (11/11/2022 8:14 PM EDT): Will ask DME specialist to check on CPAP status Assessment & Plan (07/01/2022 8:04 AM EDT): Will reach out to DME specialist regarding mask change Follow up as scheduled with sleep medicine Hypercholesterolemia 03/04/2018 Overview (04/09/2022): Atorvastatin 80mg Assessment & Plan (04/09/2022 11:01 AM EST): Labs ordered today, if ASCVD score >10% plan to start ezetimibe Encounters Date Type Department Care Team Description 12/27/2024 Refill [facility] MEDICINE [address] [place], [place] [phone] [facility] Pain 11/17/2024 Refill [facility] MOBILE VACCINE CLINIC [address] [place], [place] [phone] [facility] Vitamin D deficiency from Last 3 Months Immunizations Immunization Administration Dates Next Due Influenza Injectable Quadriv alant Preservative Free IIV4 MDCK 03/06/2022,12/09/2017 Influenza injectable quadriv alent IIV4 with preservative 01/13/2016 Influenza injectable quadrivalent preservative f ree 03/01/2023,04/15/2019 Influenza, IIV3, injectable 02/02/2015 Influenza, seasonal, injectable, preservative fr ee 03/04/2024 Pfizer Covid-19 Vaccine 12+ 03/04/2024 Pfizer Covid-19 Vaccine 12+ Bivalent 03/27/2022 Pneumococcal Conjugate PCV 20 09/02/2023 Tdap 06/22/2021 Zoster, Recombinant 12/07/2020,09/22/2020 Social History Tobacco Use Types Packs/Day Years Used Date Smoking Tobacco: Former Cigarettes Passive Smoke Exposure: Past Smokeless Tobacco: Never Tobacco Cessation:Counseling Given: Not Answered Alcohol Use Standard Drinks/Week Comments Never 0 (1 standard drink = 0.6 oz pur e alcohol) Depression Answer Date Recorded Patient Health Questionnaire-9 Score 6 03/04/2024 Patient Health Questionnaire-9 Score 6 03/04/2024 Last PHQ-9: Questionnaire Data Not on file 1 05/05/2023 Housing Stability Answer Date Recorded What is your housing situation today? I have chip hernandez 09/02/[address] you li ve. Do you have problems with any of the following? None of the above 09/02/2023 Food Insecurity Answer Date Recorded Within the past 12 months, y ou worried that your food would run out before you got money to buy more: Never True 09/02/2023 Within the past 12 months,th e food you bought just didn't last and you didn't have enough money to get more: Never True 12/2023 Transportation Answer Date Recorded In the past 12 months, has l ack of transportation kept you from medical appts, meetings, work or from getting things needed for daily living? No 09/02/2023 Utilities Answer Date Recorded In the past 12 months, has t he electric, gas, oil or water company threatened to shut off services in your home? No 09/02/2023 Depression Answer Date Recorded Patient Health Questionnaire-2 Score 4 03/04/2024 Internet Access Answer Date Recorded Internet Access Q1 Yes 06/05/2024 Internet Access Q2 Not on file 06/05/2024 Sex and Gender Information Value Date Recorded Sex Assigned at Male 01/22/2022 10:29 AM EDT Legal Sex Male 10:29 AM EDT Gender Identity Male 01/22/2022 10:29 AM EDT Sexual Orientation Bisexual 01/22/2022 10 :29 AM EDT Last Filed Vital Signs Vital Sign Reading Time Taken Comments Blood Pressure 130/82 06/05/2024 10:00 AM EDT Pulse 52 06/05/2024 10:00 AM EDT Temperature 36.2 C (97.1 F) 06/05/2024 10:00 AM EDT Respiratory Rate 20 06/05/2024 10:00 AM EDT Oxygen Saturation 97% 03/04/2024 10:53 AM EST Inhaled Oxygen Concentration - - Weight 118 kg (260 lb 6 oz) 06/05/2024 10:00 AM EDT Height 170.2 cm (5' 7 ) 06/05/2024 10:00 AM EDT Body Mass Index 40.78 06/05/2024 10:00 AM EDT Plan of Treatment Health Maintenance Due Date Last Done Comments CT Colonography 1960 FIT 1960 Sigmoidoscopy 1960 Alcohol/Substance Use Screening 1972 RSV Patients and Patients Aged 60 years or older (1 - Risk 60-74 years 1-dose series) 2020 FOBT 01/02/2024 01/01/2023, 01/01/2023 Influenza Vaccine (#1) 2024 , 03/01/2023, 03/06/2022, Additional history exists Depression Screening 03/04/2025 03/04/2024, 03/04/20 24 Disability Screening 06/05/2025 06/05/2024 SDOH Screening 06/05/2025 06/05/2024 Tobacco Screening 08/03/2025 08/03/2024 Colonoscopy 01/01/2026 02/01/2014 Colorectal Cancer Screening 01/01/2026 FIT DNA/Cologuard 01/01/2026 01/01/2023, 01/01/2023 Lipid Panel 06/05/2029 06/05/2024, 08/23, 03/27/2022, Additional history exists DTaP/Tdap/Td Vaccines (2 - Td or Tdap) 06/24/2031 06/22/2021 Postponed from 06/23/2031 (Other System Reasons) Zoster Vaccines Completed 12/07/2020, 09/22/2020 HIV Screening Completed 03/27/2022, 06/23/2021 Hepatitis C Screening Completed 03/02/2023 , 03/27/2022, 06/23/2021 Pneumococcal Vaccine: 50+ Years Completed 09/02/2023 COVID-19 Vaccine Completed 03/04/2024, 05/2022, 02/27/2021, Additional history exists HIB Vaccines Aged Out No longer eligi ble based on patient's age to complete this topic HPV Vaccines Aged Out No longer eligi ble based on patient's age to complete this topic Hepatitis A Vaccines Aged Out No long er eligible based on patient's age to complete this topic Hepatitis B Vaccines Discontinued IPV Vaccines Aged Out No longer eligi ble based on patient's age to complete this topic Meningococcal B Vaccine Aged Out No l onger eligible based on patient's age to complete this topic Meningococcal Vaccine Aged Out No delon angel eligible based on patient's age to complete this topic RSV under 20 months Aged Out No longe r eligible based on patient's age to complete this topic Rotavirus Vaccines Aged Out No longer eligible based on patient's age to complete this topic Goals Goal Patient Goal Type Associated Problems Recent Progress Patient-Stated? Author Promote adherence to treatment regimen General No Tiffany Perez PharmD Procedures Procedure Name Priority Date/Time Associated Diagnosis Comments LIPID PANEL, STANDARD Routine 06/05/2024 10:34 AM EDT HEPATITIS PANEL, GENERAL Routine 03/02/2023 8:30 AM EST Elevated liver enzymes LAB COLOGUARD COLON CANCER SCREEN Routine 01/01/2023 7:32 PM EDT Encounter for screening for malignant neoplasm of colon HIV 1/2 ANTIGEN/ANTIBODY, FOURTH GENERATION W/RFL Routine 03/27/2022 11:33 AM EST Mild cognitive impairment of uncertain or unknown etiology HM COLONOSCOPY Routine 02/01/2014 from Last 3 Months or Most Recently Relevant to Health Maintenance Results * (ABNORMAL) Lipid Panel, Standard (06/05/2024 10:34 AM EDT) Triglycerides 134 <150 mg/dL [facility] Comment:Desirable Triglyceri de: less than 150 mg/dLBorderline High Triglyceride 150-199 mg/dLHigh Triglyceride: 200-499 mg/dLVery High Triglyceride: greater than or equal to 5OO mg/dL Cholesterol 223(H) <200 mg/dL [facility] Comment:Desirable Cholestero l: less than 200 mg/dLBorderline High Cholesterol: 200-239 mg/dLHigh Cholesterol: greater than 239 mg/dL LDL Cholesterol Calculated 154(H) <100 mg/dL [facility] Comment:Desirable LDL: less than 100 mg/dLNear Optimal/Above Optimal LDL: 110- 129 mg/dLBorderline High LDL: 130-159 mg/dLHigh LDL: 160-189 mg/dLVery High LDL: greater than or equal to 190 mg/dL HDL Cholesterol 43 >40 mg/dL [facility] Comment:Desirable HDL: great er than 40 mg/dL Note: This HDL assay may give artificially low results in patients with liver disease. 06/05/2024 10:3 4 AM EDT 06/05/2024 11:15 AM EDT [facility] BLOOD ORDERABLES Final Re sult Performing Organization Address [facility] de Phone Number [facility] [address] [place] [phone] * Hepatitis A,B,C Profile (03/02/2023 8:30 AM EST) Hepatitis A IgM Nonreactive Nonreactive [facility] Comment:IgM antibodies to RUANO V not detected; does not exclude earlyacute or recovered HAV infection. ~Hepatitis B Surface Antibody NONREACTIVE Nonreactive [facility] Comment:Nonreactive: < 8.00 mIU/mL Hepatitis B Core Antibody Nonreactive Nonreactive [facility] Hepatitis C Antibody Nonreactive Nonreactive [facility] Comment:Antibodies to HCV no t detected; does not exclude early acuteHCV infection. Hepatitis B Surface Ag Negative Negative [facility] Blood Venous blood specimen / Unknown 03/02/2023 8:30 AM EST 03/02/2023 8:30 AM EST [facility] BLOOD ORDERABLES Final Re sult Performing Organization Address [facility] de Phone Number [facility] [address] [place] [phone] * Cologuard?? colon cancer screening (01/01/2023 7:32 PM EDT) Cologuard Result Negative Negative 01/10/20 1:35 AM EDT [facility] (CLIA #:[id number]) Comment: NEGATIVE TEST RESULT. A negative Cologuard [...] (Elroy Freedman al, N Engl J Med 2014;370(14):0112-4184) The normal value (reference range) for this assay is negative. COLOGUARD RE-SCREENING RECOMMENDATION: Periodic colorectal cancer screening is an important part of preventive healthcare for asymptomatic individuals at average risk for colorectal cancer. Following a negative Cologuard result, the [place] [employer] and U.S. Multi-Society Task Force screening guidelines recommend a Cologuard re-screening interval of 3 years. References: [place] [employer] Guideline for Colorectal Cancer Screening: https://www.cancer.org/cancer/jtccx-thfjoi-ejwywe/gifbllply-lokoidvwc-kgjhguw/ac s-rec ommendations.html.; Anand DK, Breann MEEKS, Marianne ContrerasK, Colorectal Cancer Screening: Recommendations for Physicians and Patients from the U.S. Multi-Society Task Force on Colorectal Cancer Screening , Am J Gastroenterology 2017; 112:5435-4934. TEST DESCRIPTION: Composite algorithmic analysis of stool [...] (Elroy Freedman al, N Engl J Med 2014;370(14):1753-2203.) Cologuard may produce a false negative or false positive result (no colorectal cancer or precancerous polyp present at colonoscopy follow up). A negative Cologuard test result does not guarantee the absence of CRC or advanced adenoma (pre-cancer). The current Cologuard screening interval is every 3 years. ([place] [employer] and U.S. Multi-Society Task Force). Cologuard performance data in a 10,000 patient pivotal study using colonoscopy as the reference method can be accessed at the following location: www.LP Amina.Atraverda/results. Additional description of the Cologuard test process, warnings and precautions can be found at www.TradeCloud.nlrd.Atraverda. Stool specimen (specimen) 01/01/2023 7:32 PM EDT 01/03/2023 8:38 PM EDT [facility] MOLECULAR DIAGNOSTICS ORD ERABLES Final Result [facility] (CLIA #:[id number]) [place] [address], * HIV-1/2 Antigen and Antibodies, Fourth Generation, with Reflexes (03/27/2022 11:33 AM EST) HIV Antigen/Antibody, 4th Generation NON-REAC TIVE NON-REAC TIVE [facility] Comment: HIV-1 antigen and HIV-1/HIV-2 antibodies were not detected. There is no laboratory evidence of HIV infection. PLEASE NOTE: This information has been disclosed to you from records whose confidentiality may be protected by state law. If your state requires such protection, then the state law prohibits you from making any further disclosure of the information without the specific written consent of the person to whom it pertains, or as otherwise permitted by law. A general authorization for the release of medical or other information is NOT sufficient for this purpose. For additional information please refer to http://education.Glance App/faq/OII746 (This link is being provided for informational/ educational purposes only.) The performance of this assay has not been clinically validated in patients less than 2 years old. Blood Venous blood specimen / Unknown 03/27/2022 11:33 AM EST 03/27/2022 11:34 AM EST Narrative [facility] - 03/28/2022 4:00 PM EST FASTING:NO FASTING: NO [facility] FELTING MACHINE OPERATOR LAB BLOOD ORDERABLES Final Re sult [facility] [address] [facility], [facility], [address] [address] [facility] [address], (Nl2) [phone] * Colonoscopy (02/01/2014) Colonoscopy performed Historical Provider MD HEALTH MAINTENANCE Final Result from Last 3 Months or Most Recently Relevant to Health Maintenance Insurance [facility] < [address] [place] [id number] Care Teams Manufacturing Planner Relationship Specialty Start Date End Date Steph Argueta FNP [address] [place] [phone] PCP - General Family Medicine 11/15/21
--- OUTSIDE RECORDS SUMMARY | 2025-01-26 08:32 | XMS_ITS | Encounter Summary ---
Author Organization [employer] Address [address] [facility] 7t [place] [address] Care Team Providers Care Nutrition Aides Teacher Name Role Phone [facility] Primary Care Provider [phone] Reason for Visit * Reason Comments Med Refill Encounter Details Date Type Department Care Team ([facility] st Contact Info) Description 03/18/2024 Refill [facility] MEDICINE [address] [place] [address] [facility] [address] [place] [address] Pain Social History Tobacco Use Types Packs/Day Years [...] Recorded Patient Health Questionnaire-2 Score 4 03/04/2024 Sex and Gender Information Value Date Recorded Sex Assigned at Male 01/22/2022 10:29 AM EDT Legal Sex Male 10:29 AM EDT Gender Identity Male 01/22/2022 10:29 AM EDT Sexual Orientation Bisexual 01/22/2022 10 :29 AM EDT documented as of this encounter Plan of Treatment Not on file documented as of this encounter Goals Goal Patient Goal Type Associated Problems Recent Progress Patient-Stated? Author Promote adherence to treatment regimen General No Tiffany Perez, PharmD documented as of this encounter Visit Diagnoses Diagnosis Pain Generalized pain documented in this encounter Additional Health Concerns Assessment Noted Time PHQ-9 Depression Total Score: 6 03/04/20 24 10:54 AM EST documented as of this encounter Care Teams Nutrition Aides Teacher Relationship Specialty Start Date End Date Steph Argueta FNP [address] [place] [phone] PCP - General Family Medicine 11/15/21 documented as of this encounter
--- OUTSIDE RECORDS SUMMARY | 2025-01-26 08:32 | XMS_ITS | Encounter Summary ---
Author Organization [employer] Address [address] [facility] [address] [place] [address] Care Team Providers Care Pipeline Technician Name Role Phone Ellie [facility] Primary Care Provider [phone] Encounter Details Date Type Department Care Team ([facility] st Contact Info) Description 02/07/2023 Abstract [facility] MEDICINE [address] [place], [place] [phone] Shayla Wilks Social History Tobacco Use Types Packs/Day Years Used Date Smoking Tobacco: Former Cigarettes Smokeless Tobacco: Never Alcohol Use Standard Drinks/Week Comments Never 0 (1 standard drink = 0.6 oz pur e alcohol) Depression Answer Date Recorded Patient Health Questionnaire-9 Score 0 10/30/2022 Housing Stability Answer Date Recorded What is your housing situation today? I have chip hernandez 01/07/[address] you li ve. Do you have problems with any of the following? None of the above 01/07/2023 Food Insecurity Answer Date Recorded Within the past 12 months, y ou worried that your food would run out before you got money to buy more: Never True 01/07/2023 Within the past 12 months,th e food you bought just didn't last and you didn't have enough money to get more: Never True Transportation Answer Date Recorded In the past 12 months, has l ack of transportation kept you from medical appts, meetings, work or from getting things needed for daily living? No 01/07/2023 Utilities Answer Date Recorded In the past 12 months, has t he electric, gas, oil or water company threatened to shut off services in your home? No 01/07/2023 Depression Answer Date Recorded Patient Health Questionnaire-2 [...] documented as of this encounter Visit Diagnoses Not on filedocumented in this encounter Additional Health Concerns Assessment Noted Time PHQ-9 Depression Total Score: 0 10/31/19 9:32 AM EDT documented as of this encounter Care Teams Pipeline Technician Relationship Specialty Start Date End Date Steph Argueta FNP [address] [place] [phone] PCP - General Family Medicine 11/15/21 documented as of this encounter
--- OUTSIDE RECORDS SUMMARY | 2025-01-26 08:32 | XMS_ITS | Encounter Summary ---
Author Organization [employer] Address [address] [facility] 7t [place] [address] Care Team Providers Care Lining Presser Name Role Phone [facility] Primary Care Provider [phone] Reason for Visit * Reason Comments Med Refill Encounter Details Date Type Department Care Team (Late st Contact Info) Description 02/24/2024 Refill [facility] [address] [place], [place] [phone] [facility] [address] [facility] [place] [address] Social History Tobacco Use Types Packs/Day Years Used Date Smoking Tobacco: Former Cigarettes Smokeless Tobacco: Never Alcohol Use Standard Drinks/Week Comments Never 0 (1 standard drink = 0.6 oz pur e alcohol) Depression Answer Date Recorded Patient Health Questionnaire-9 Score 4 09/02/2023 Patient Health Questionnaire-9 Score 4 09/02/2023 Last PHQ-9: Questionnaire Data Not on file 0 09/02/2023 Housing Stability Answer Date Recorded What is [...] Answer Date Recorded Patient Health Questionnaire-2 Score 2 09/02/2023 Sex and Gender Information Value Date Recorded [...] Assessment Noted Time PHQ-9 Depression Total Score: 4 09/02/19 24 9:14 AM EDT documented as of this encounter Care Teams Lining Presser Relationship Specialty Start Date End Date Steph Argueta FNP [address] [place] [phone] PCP - General Family Medicine 11/15/21 documented as of this encounter
--- OUTSIDE RECORDS SUMMARY | 2025-01-26 08:32 | XMS_ITS | Encounter Summary ---
Author Organization [employer] Address [address] [facility] [address] [place] [address] Care Team Providers Care Alarm Security Or Surveillance Monitor Name Role Phone [facility] Primary Care Provider [phone] Reason for Visit * Reason Onset Date Comments Call request 08/03/2022 Encounter Details Date Type Department Care Team ([facility] st Contact Info) Description 08/03/2022 Telephone [facility] [address] [place] [address] [facility] [address] [place] [address] Call request Social History Tobacco Use Types Packs/Day Years [...] AM EDT documented as of this encounter Miscellaneous Notes * Telephone Encounter - Lauren Christensen RN - 08/03/2022 3:16 PM EDT Please review message below and advise if new sleep study can be ordered. * Telephone Encounter - Gabby Gonzales - 08/03/2022 11:22 AM EDT Tc from Mat with [employer] requesting a call from an [place] or Nurse in regards for pt to obtain new machine. Mat states pt is require to have another sleep study done to obtain. Please contact [facility] at [phone] EXT: [phone] documented in this encounter Plan of Treatment Not on file documented as of this encounter Visit Diagnoses Not on filedocumented in this encounter Additional Health Concerns Assessment Noted Time PHQ-9 Depression Total Score: 8 03/27/19 23 10:20 AM EST documented as of this encounter Care Teams Alarm Security Or Surveillance Monitor Relationship Specialty Start Date End Date Steph Argueta FNP [address] [place] [address] PCP - General Family Medicine 11/15/21 documented as of this encounter
--- OUTSIDE RECORDS SUMMARY | 2025-01-26 08:32 | XMS_ITS | Encounter Summary ---
Author Organization [employer] Address [address] [place] [address] [address] [place] [address] Care Team Providers Care Homeland Security Program Specialist Name Role Phone [facility] Primary Care Provider [phone] Reason for Visit * Reason Comments Med Refill Encounter Details Date Type Department Care Team (Late st Contact Info) Description 06/30/2022 Refill [facility] [address] [place] [address] [facility] [address] [place] [address] Vitamin D deficiency Social History Tobacco Use Types Packs/Day Years [...] as of this encounter Visit Diagnoses Diagnosis Vitamin D deficiency documented in this encounter Additional Health Concerns Assessment Noted Time PHQ-9 Depression Total Score: 8 03/27/19 23 10:20 AM EST documented as of this encounter Care Teams Homeland Security Program Specialist Relationship Specialty Start Date End Date [facility] [address] [place] [address] PCP - General Family Medicine 11/15/21 documented as of this encounter
--- OUTSIDE RECORDS SUMMARY | 2025-01-26 08:32 | XMS_ITS | Encounter Summary ---
Author Organization [employer] Address [address] [facility] [address] [place] [address] Care Team Providers Care Chief Juvenile Probation Officer Name Role Phone [facility] Primary Care Provider [phone] Encounter Details Date Type Department Care Team ([facility] st Contact Info) Description 01/11/2023 Abstract [facility] [address] [place], [place] [id number] [facility] [address] [place] [address] Social History Tobacco Use Types Packs/Day Years [...] Procedure Name Priority Date/Time Associated Diagnosis Comments HM FIT DNA/COLOGUARD CANCER SCREENING Routine 01/01/2023 documented in this encounter Results * FIT DNA/Cologuard Cancer Screening (01/01/2023) Cologuard Cancer Screen Negative Stool [facility] HEALTH MAINTENANCE Final Resu lt documented in this encounter Visit Diagnoses Not on filedocumented in this encounter Additional Health Concerns Assessment Noted Time PHQ-9 Depression Total Score: 0 10/31/19 23 9:32 AM EDT documented as of this encounter Care Teams Chief Juvenile Probation Officer Relationship Specialty Start Date End Date [facility] [address] [place] [id number] PCP - General Family Medicine 11/15/21 documented as of this encounter
--- OUTSIDE RECORDS SUMMARY | 2025-01-26 08:32 | XMS_ITS | Encounter Summary ---
Author Organization [employer] Address [address] [facility] [address] [place] [address] Care Team Providers Care Stadium Manager Name Role Phone [place] [facility] Primary Care Provider [phone] Encounter Details Date Type Department Care Team ([facility] st Contact Info) Description 08/06/2022 Orders Only [facility] [address] [place] [address] [place] [facility] [address] [place] [address] Obstructive sleep apnea syndrome (Primary Dx) Social [...] documented as of this encounter Care Teams Stadium Manager Relationship Specialty Start Date End Date Steph Argueta FNP [address] [place] [id number] PCP - General Family Medicine 11/15/21 documented as of this encounter
== END 2025-01-26 08:56 | disposition home or self-care (01) ==
LOC: HO.HOS 08:13
PROVIDERS: Visit Provider Physician Assistant
DX: M17.0 Bilateral primary osteoarthritis of knee (principal)
CPT/HCPCS: 20610; 99213

== ENCOUNTER → 2025-01-26 08:13 | Outpatient (BNVA) | payer OTHER, SELFPAY | PROVIDERS: Visit Provider Physician Assistant | DX: M17.0 Bilateral primary osteoarthritis of knee (principal) | CPT/HCPCS: 20610; 99212; J0665; J1100; J2003 ==